=== PATIENT | female | born 1980 | race Caucasian/White ===

== ENCOUNTER → 2019-08-06 | Outpatient (CLI) | payer OTHER ==
[~2019-08-06] MED LIST: DICLOFENAC SODI50 MG PO; KETO10TA2 PO
== END | disposition home or self-care (01) ==
LOC: PRENATAL 09:00
DX: O21.0 Mild hyperemesis gravidarum (principal); O34.211 Maternal care for low transverse scar from previous cesarean delivery; O26.11 Low weight gain in pregnancy, first trimester

== ENCOUNTER → 2019-09-06 | Outpatient (CLI) | payer OTHER | END | disposition home or self-care (01) | LOC: PRENATAL 09:00 | DX: O26.843 Uterine size-date discrepancy, third trimester (principal); O09.213 Supervision of pregnancy with history of pre-term labor, third trimester; O21.0 Mild hyperemesis gravidarum; O34.211 Maternal care for low transverse scar from previous cesarean delivery; O26.13 Low weight gain in pregnancy, third trimester; O99.89 Other specified diseases and conditions complicating pregnancy, childbirth and the puerperium ==